=== PATIENT | female | born 1965 | race Caucasian/White ===

== ENCOUNTER 2017-03-17 18:10 | Emergency (ER) | payer BC ==
--- NOTE | 2017-03-17 18:49 | ED ---
General Adult HPI <David Mcginnis - Last Filed: 03/17/17 19:26> - General Source: patient, family, RN notes reviewed Mode of arrival: wheelchair Limitations: no limitations <Kevin Loyola - Last Filed: 03/17/17 19:50> - General Chief complaint: Head Injury Stated complaint: Fall-syncope Time Seen by Provider: 03/17/17 18:19 - History of Present Illness Initial comments: Patient's a 51-year-old female who presents emergency room today with chief complaint of a head injury that occurred just prior to arrival. Patient does admit that she was drinking earlier today. States he had 4 beers in the last 5 hours. States she felt fine. Family at bedside states that she went to stand up from a seated position and fell over hitting the back of her head. Patient states she does not feel dizzy or lightheaded prior to this. Patient states she does not believe she lost consciousness. She does admit that her vision is blurry at this time and does have a headache in the back of her head. She denies any other complaints or symptoms at this time. Patient denies any recent fever, chills, shortness of breath, chest pain, back pain, abdominal pain, nausea or vomiting, numbness or tingling, dysuria or hematuria, constipation or diarrhea, headaches or visual changes, or any other complaints. (Kevin Loyola) - Related Data Home Medications Medication Instructions Recorded Confirmed Ascorbic Acid [Vitamin C] 500 mg PO DAILY 03/17/17 03/17/17 Pediatric Multivitamin Comb#30 1 tab PO DAILY 03/17/17 03/17/17 [Multivitamin Children's Gummies] Thiamine HCl [Vitamin B-1] 100 mg PO DAILY 03/17/17 03/17/17 Allergies Allergy/AdvReac Type Severity Reaction Status Date / Time No Known Allergies Allergy Verified 03/17/17 19:14 Review of Systems ROS Other: All systems not noted in ROS Statement are negative. <David Mcginnis - Last Filed: 03/17/17 19:26> ROS Other: All systems not noted in ROS Statement are negative. <Kevin Loyola - Last Filed: 03/17/17 19:50> ROS Statement: Those systems with pertinent positive or pertinent negative responses have been documented in the HPI. Past Medical History Past Medical History: No Reported History History of Any Multi-Drug Resistant Organisms: None Reported Past Surgical History: Unable to Obtain Past Psychological History: No Psychological Hx Reported Smoking Status: Current every day smoker Past Alcohol Use History: Occasional Past Drug Use History: None Reported <Kevin Loyola - Last Filed: 03/17/17 19:50> General Exam <David Mcginnis - Last Filed: 03/17/17 19:26> Limitations: no limitations <Kevin Loyola - Last Filed: 03/17/17 19:50> - General Exam Comments Initial Comments: General: The patient is awake and alert, in no distress, and does not appear acutely ill. Eye: Pupils are equal, round and reactive to light, extra-ocular movements are intact. No nystagmus. There is normal conjunctiva bilaterally. No signs of icterus. Ears, nose, mouth and throat: There are moist mucous membranes and no oral lesions. Neck: The neck is supple, there is no tenderness or JVD. Cardiovascular: There is a regular rate and rhythm. No murmur, rub or gallop is appreciated. Respiratory: Lungs are clear to auscultation, respirations are non-labored, breath sounds are equal. No wheezes, stridor, rales, or rhonchi. Musculoskeletal: Normal ROM, no tenderness. Strength 5/5. Sensation intact. Pulses equal bilaterally 2+. Neurological: A&O x 3. CN II-XII intact, There are no obvious motor or sensory deficits. Coordination appears grossly intact. Speech is normal. Skin: Skin is warm and dry and no rashes or lesions are noted. Psychiatric: Cooperative, appropriate mood & affect, normal judgment. (Kevin Loyola) Medical Decision Making <David Mcginnis - Last Filed: 03/17/17 19:26> <Kevin Loyola - Last Filed: 03/17/17 19:50> - Medical Decision Making Patient reports she had approximately 4 beers earlier today. Stood up and fell backwards bumping her head. Came in with a headache. No nausea no vomiting no seizure activity per family. CAT scan of the brain negative. Patient states she still feels somewhat dizzy but she is able to stand she'll walk several feet turn around come back which couldn't do at home. Answer questions appropriately. Denies doing any drugs. Alert to person and place and purpose. The patient be given Tylenol for her discomfort ice pack to her head. Allowed to rest little longer for decision was made as to whether or not she'll be discharged home to care of her will awaken every 4 hours or more frequently as needed. Patient wants to go home at this time. Dr. Mcginnis (David Mcginnis) Reexamined at this time shows no signs of distress. She does admit that she is feeling better. She would like to be discharged home. We did discuss about hospitalization. She states she does not want stay in the hospital. She denies any drug use. Patient's declined drug screen. Denied any other testing at this time. States feels comfortable being discharged home. She'll be given information of concussion. Advised follow-up the family doctor in the next 1-2 days. Advised to return if any symptoms increase or worsen or for any other concerns. (Kevin Loyola) Disposition <David Mcginnis - Last Filed: 03/17/17 19:26> Time of Disposition: 19:49 <Kevin Loyola - Last Filed: 03/17/17 19:50> Clinical Impression: Concussion Disposition: HOME SELF-CARE Instructions: Concussion (ED) Additional Instructions: Please follow-up family doctor over the next 2 days. Please return to emergency room if any symptoms increase or worsen or for any other concerns. Please return to emergency room if the symptoms increase or worsen or for any other concerns. Referrals: Nonstaff,Physician [Primary Care Provider] - 1-2 days
--- NOTE | 2017-03-17 19:14 | CT ---
EXAMINATION TYPE: CT brain francis wo con DATE OF EXAM: 03/17/2017 7:00 PM COMPARISON: NONE HISTORY: Syncope today with injury to posterior head area. CT DLP: 1414.0 mGycm Automated exposure control for dose reduction was used. TECHNIQUE: CT scan of the head and cervical spine are performed without contrast. FINDINGS: There is no acute intracranial hemorrhage, mass effect, or midline shift identified. The ventricles and sulci are within normal limits in size. The globes are intact and the visualized sin uses are remarkable for inflammatory change in the ethmoid air cells. Cervical spine is visualized in its entirety from C1 through upper thoracic levels and demonstrates s atisfactory alignment without evidence of acute fracture or dislocation. Prevertebral soft tissue ap pears within normal limits. The C1-C2 articulation is unremarkable. IMPRESSION: 1. There is no acute fracture or dislocation evident in the cervical spine. 2. No acute intracranial hemorrhage, mass effect, or midline shift is seen.
[2017-03-17] MEDS ORDERED: ACETAMINOPHEN TAB 500 MG TAB PO STA (19:29)
[2017-03-17] MEDS: ONDANSETRON ODT 4 MG TAB PO STA ×2 (19:36→19:37)
[2017-03-17 20:15] VITALS: BP 126/78; PULSE 74; RESP 16; TEMP 98.4
== END 2017-03-17 20:15 | disposition home or self-care (01) ==
LOC: EC 18:10
DX: S06.0X0A Concussion without loss of consciousness, initial encounter (principal); F17.200 Nicotine dependence, unspecified, uncomplicated; Z79.899 Other long term (current) drug therapy; W18.00XA Striking against unspecified object with subsequent fall, initial encounter
CPT/HCPCS: 70450; 72125; 82075; 99284

== ENCOUNTER → 2021-10-12 | Outpatient (CLI) | payer MEDICARE, OTHER ==
--- NOTE | 2021-10-12 13:10 | P.GSHP ---
History of Present Illness H&P Date: 10/12/21 Chief Complaint: abnormal right breast ultrasound Janis is a 56-year-old white female seen in consultation for Dr. Mayberry regarding the radiographic abnormality in the right breast. [place] [address] after which additional views of the right breast and ultrasounds were performed. [place] [address] which revealed a persistent nodular density central portion of the right breast between the 12 and 12:30 position and ultrasound was recommended, this was done the same day and a precautionary 6 month follow-up ultrasound of the right breast was recommended. Repeat right breast mammogram was performed on 93 and ultrasound was again performed. On this evaluation a complex cyst versus mass at 3:00 right breast was identified and ultrasound core biopsy was recommended. The findings also stated that in the absence of histologic abnormality following the biopsy a short-term follow-up of the right breast 9 9:00 lesion which was 0.8 x 0.6 cm could be performed at 6 months. The patient does not feel any lumps masses or nodules of concern in either breast. She is not complaining of any nipple discharge. She's never had a breast biopsy in the past. She had genetic testing done and was reportedly negative. She does have a strong family history of breast cancer. Marivel Risk Evaluation: 5 year: 2.3% vs 1.4 lifetime risk: 14.5% vs 10% We have discussed antihormone therapy however at this time we are going to await biopsy results. caffeine: 2 cups/day Nicotine:1/2 PPD 30 years chocolate: weekly Family History: Maternal aunt: Breast cancer; bilateral mastectomy; ?age Maternal grandmother: Breast cancer Mother: Breast cancer in 20's maternal great grandmother: throat cancer Hormonal History: menarche: 12 , breast fed: yes, age at first : 18 menopause: LMP January 2021 BCP: as a teen 2 months; homones: none Surgical History: left ankle right knee Medical History: arthritis carpal tunnel back pain Social History: nicotine: 1/2 PPD alcohol: none drugs: none - Constitutional Constitutional: Reports sweats - EENT Eyes: denies blurred vision, denies pain Ears: bilateral: decreased hearing, tinnitus Ears, nose, mouth and throat: Denies headache, Denies sore throat - Breasts Breasts: bilateral: as per HPI - Cardiovascular Cardiovascular: Denies chest pain, Denies shortness of breath - Respiratory Respiratory: Denies cough, Denies 7 - Gastrointestinal Gastrointestinal: Denies abdominal pain, Denies diarrhea, Denies nausea, Denies vomiting - Genitourinary (Female) Genitourinary: Denies dysuria, Denies hematuria - Menstruation Menstruation: Reports as per HPI - Musculoskeletal Musculoskeletal: Reports as per HPI - Integumentary Integumentary: Denies pruritus, Denies rash - Neurological Neurological: Denies numbness, Denies weakness - Psychiatric Psychiatric: Denies anxiety, Denies depression - Endocrine Endocrine: Reports weight change, Denies fatigue - Hematologic/Lymphatic Comment: aspirin baby daily - Allergic/Immunologic Allergic/Immunologic: Reports as per HPI Past Medical History Past Medical History: No Reported History History of Any Multi-Drug Resistant Organisms: None Reported Past Surgical History: Orthopedic Surgery Additional Past Surgical History / Comment(s): right knee replacement-2018 Past Anesthesia/Blood Transfusion Reactions: No Reported Reaction Past Psychological History: No Psychological Hx Reported Smoking Status: Current every day smoker Past Alcohol Use History: Occasional Past Drug Use History: None Reported Medications and Allergies Home Medications Medication Instructions Recorded Confirmed Type Ascorbic Acid [Vitamin C] 500 mg PO DAILY 03/17/17 03/17/17 History Calcium Carbonate [Calcium] 600 mg PO DAILY 10/12/21 10/12/21 History Cyanocobalamin (Vitamin B-12) 5,000 mcg PO DAILY 10/12/21 10/12/21 History [Vitamin B12] Ergocalciferol [Vitamin D2 (1250 1,250 mcg PO DAILY 10/12/21 10/12/21 History Mcg = 29152 Iu)] Omeprazole 20 mg PO DAILY 10/12/21 10/12/21 History Phentermine HCl 37.5 mg PO DAILY 10/12/21 10/12/21 History Allergies Allergy/AdvReac Type Severity Reaction Status Date / Time No Known Allergies Allergy Verified 10/12/21 12:36 Surgical - Exam Vital Signs Temp Pulse Resp BP 98.4 F 80 16 145/90 10/12/21 12:41 10/12/21 12:41 10/12/21 12:41 10/12/21 12:41 BMI 28.2 - General no distress - Eyes normal ocular movement - ENT normal nares - Neck trachea midline - Respiratory normal respiratory effort - Cardiovascular Rhythm: regular Heart Sounds: normal: S1, S2 - Abdomen Abdomen: soft - Integumentary normal turgor - Neurologic no disoriented, no combative - Musculoskeletal normal gait - Psychiatric oriented to time, oriented to person, oriented to place, speech is normal, memory intact Breast Exam: BRA: 38D Inspection: bilateral grade 2 ptosis, right breast slightly smaller than left Inspection: right breast: Multi-positional exam fibrocystic changes no dominant masses or nodules of concern; particular attention to the 3:00 area did not reveal any specific lesions of concern Right axilla: No adenopathy of concern Left breast: Positional exam fibrocystic changes no dominant masses or nodules of concern Left axilla: No adenopathy of concern Results Mammogram and ultrasound reviewed in person with Dr. Brambila Assessment and Plan Assessment: Impression: 1. Strong family history of breast cancer 2. Mammographic/radiographic abnormality right breast at 3:00 3. Fibrocystic breast changes Plan: 1. Ultrasound-guided core biopsy/aspiration right breast 2. Follow-up after this CC: Dr. Mayberry
[2021-10-12 13:57] VITALS: BP 145/90; PULSE 80; RESP 16; TEMP 98.4
== END ==
LOC: WWCWWP 12:03
PROVIDERS: ATTEND Surgery
DX: N60.11 Diffuse cystic mastopathy of right breast (principal); N60.12 Diffuse cystic mastopathy of left breast; R92.8 Other abnormal and inconclusive findings on diagnostic imaging of breast; F17.210 Nicotine dependence, cigarettes, uncomplicated; M19.90 Unspecified osteoarthritis, unspecified site; Z80.3 Family history of malignant neoplasm of breast

== ENCOUNTER → 2021-11-02 | Day surgery (SDC) | payer OTHER ==
[2021-11-02 09:50] VITALS: RESP 16
[2021-11-02 11:01] VITALS: BP 129/87; PULSE 65; TEMP 97.9
--- NOTE | 2021-11-02 13:09 | USB ---
EXAMINATION TYPE: US biopsy breast VAD RT, MG diagnostic mammo RT wo CAD DATE OF EXAM: 11/02/2021 CLINICAL HISTORY: R92.8 ABN MAMMO. TECHNIQUE: Ultrasound guided core biopsy of right 3:00 breast. COMPARISON: NONE FINDINGS: The procedure of ultrasound guided core biopsy was explained to the patient. Benefits, alternatives, and risks were discussed. An informed consent was then obtained. The patient was placed in supine positioning for imaging and for the procedure. The overlying skin was prepped and draped in usual sterile fashion. Lidocaine buffered with bicarbonate was used as anesthetic into the skin and subcutaneous tissue up to area of concern in the right 3:00 breast. Under ultrasound guidance, a 12-gauge vacuum assisted biopsy gun device was used to obtain 1 core sample. The lesion could no longer be visualized. Following this, a biopsy clip was left in lesion. Postprocedural mammogram demonstrates appropriate clip deployment. The patient tolerated the procedure well without any immediate complication. The patient was kept in the radiology department for short stay after the procedure and then discharged home in stable condition. IMPRESSION: Successful, uncomplicated ultrasound guided core biopsy of area of concern in the right 3:00 breast, full pathology results to follow. Pathology Results: Benign RIGHT BREAST, THREE O'CLOCK POSITION, CORE BIOPSY: Fragment of benign fibrotic ductal cyst with acute and chronic inflammation. Recommendation Follow up mammogram and ultrasound of the right breast in 6 months. JARED
== END ==
LOC: RADUSWWP 09:36
PROVIDERS: ATTEND Surgery
DX: N60.01 Solitary cyst of right breast (principal); R92.8 Other abnormal and inconclusive findings on diagnostic imaging of breast
CPT/HCPCS: 88305; 77065; 19083; A4648; J2001

== ENCOUNTER → 2021-11-10 | Outpatient (CLI) | payer OTHER ==
[2021-11-10 12:15] VITALS: BP 150/81; PULSE 78; RESP 18; TEMP 98.7
--- NOTE | 2021-11-10 12:26 | P.PN ---
Subjective Progress Note Date: 11/10/21 Principal diagnosis: Fibrocystic breast changes Janis is a 56-year-old white female status post ultrasound-guided core biopsy of the right breast on . Pathology was benign. Patient tolerated the procedure without difficulty. Objective - Vital Signs Vital signs: Vital Signs Temp 98.7 F 11/10/21 12:13 Pulse 78 11/10/21 12:13 Resp 18 11/10/21 12:13 BP 150/81 11/10/21 12:13 Pulse Ox 97 11/10/21 12:13 Intake & Output 11/09/21 11/10/21 11/10/21 18:59 06:59 18:59 Weight 81.647 kg - Constitutional General appearance: Present: cooperative - EENT Eyes: Present: edentulous ENT: Present: hearing grossly normal - Neck Neck: Present: normal ROM - Respiratory Respiratory: bilateral: CTA - Cardiovascular Heart sounds: normal: S1, S2 - Integumentary Integumentary Comment(s): no evidence of infection at biopsy site - Psychiatric Psychiatric: Present: A&O x's 3, appropriate affect, intact judgment & insight Assessment and Plan Assessment: Impression: fibrocystic breast disease Plan: right breast mammogram in 6 months with appointment CC: Dr. Mayberry
== END ==
LOC: WWCWWP 11:14
PROVIDERS: ATTEND Surgery
DX: N60.11 Diffuse cystic mastopathy of right breast (principal); F17.200 Nicotine dependence, unspecified, uncomplicated

== ENCOUNTER → 2022-05-07 | Outpatient (CLI) | payer MEDICARE, OTHER ==
--- NOTE | 2022-05-07 15:13 | MM ---
Reason for Exam: Follow-up at short interval from prior study. Last screening mammogram was performed 9 month(s) ago. Patient History: Menarche at age 12. First Full-Term at age 18. Postmenopausal. Patient tested for BRCA1 outcome was negative. 11/02/2021, Benign Core Biopsy on the right side. Maternal aunt had breast cancer, age 50. Maternal aunt had breast cancer. Maternal grandmother had breast cancer. Mother had breast cancer, age 24. Risk Values: Marivel 5 year model risk: 2.7%. NCI Lifetime model risk: 16.8%. Prior Study Comparison: 11/30/2019 Bilateral MG screening mammo w CAD - 2, [facility]. 12/07/2020 Bilateral MG screening mammo w CAD - 2, [facility]. 02/08/2021 Right MG diagnostic mammo RT w CAD - 2, [facility]. 07/28/2021 Right MG 3D diag mammo w/cad RT - 2, [facility]. 11/02/2021 Right Diagnostic Mammogram, [facility]. Tissue Density: Right: The breast tissue is heterogeneously dense. This may lower the sensitivity of mammography. Findings: Analyzed By CAD. Clip marker noted from prior ultrasound-guided core biopsy. Chronic nodularity identified. No evidence for new mass or suspicious cluster of microcalcifications. Overall Assessment: Benign, BI-RAD 2 Management: Screening Mammogram of both breasts in 6 months. A clinical breast exam by your physician is recommended on an annual basis and results should be correlated with mammographic findings. This exam should not preclude additional follow-up of suspicious palpable abnormalities. Results were given to the patient verbally at the time of exam. Electronically signed and approved by: Miguel Mccoy M.D. Radiologis
== END | disposition home or self-care (01) ==
LOC: RADMAMWWP 14:20
PROVIDERS: ATTEND Surgery
DX: R92.8 Other abnormal and inconclusive findings on diagnostic imaging of breast (principal); Z78.0 Asymptomatic menopausal state; Z80.3 Family history of malignant neoplasm of breast
CPT/HCPCS: 77065

== ENCOUNTER → 2022-05-11 | Outpatient (CLI) | payer OTHER ==
[2022-05-11 11:46] VITALS: BP 148/95; PULSE 76; RESP 16; TEMP 98.1
--- NOTE | 2022-05-11 12:25 | P.PN ---
Subjective Progress Note Date: 05/11/22 Principal diagnosis: Fibrocystic breast changes Janis is a 56-year-old white female seen in consultation for Dr. Mayberry regarding the radiographic abnormality in the right breast. She underwent a bilateral mammogram on after which additional views of the right breast and ultrasounds were performed. A repeat right breast mammogram was performed on which revealed a persistent nodular density central portion of the right breast between the 12 and 12:30 position and ultrasound was recommended, this was done the same day and a precautionary 6 month follow-up ultrasound of the right breast was recommended. Repeat right breast mammogram was performed on 9320 and ultrasound was again performed. On this evaluation a complex cyst versus mass at 3:00 right breast was identified and ultrasound core biopsy was recommended. The findings also stated that in the absence of histologic abnormality following the biopsy a short-term follow-up of the right breast 9 9:00 lesion which was 0.8 x 0.6 cm could be performed at 6 months. The patient does not feel any lumps masses or nodules of concern in either breast. She is not complaining of any nipple discharge. She's never had a breast biopsy in the past. She had genetic testing done and was reportedly negative. She does have a strong family history of breast cancer. 05-11-22 She has no complaints related to her breast at this time. She is not complaining of any lumps masses or nodules in either breast. On 11-02-21 she underwent a core biopsy of the right breast which was benign. On 05-07-22 she had a right breast mammogram which was Benign BIRAD 2. She should have bilateral mammogram in 6 months back on schedule. Marivel Risk Evaluation: 5 year: 2.7% vs 1.4 lifetime risk: 16.8% vs 10% We have discussed antihormone therapy however at this time we are going to await biopsy results. caffeine: 2 cups/day Nicotine:1/2 PPD 30 years chocolate: weekly Family History: Maternal aunt: Breast cancer; bilateral mastectomy; ?age Maternal grandmother: Breast cancer Mother: Breast cancer in 20's maternal great grandmother: throat cancer Hormonal History: menarche: 12 , breast fed: yes, age at first : 18 menopause: LMP January 2021 BCP: as a teen 2 months; homones: none Surgical History: left ankle right knee Medical History: arthritis carpal tunnel back pain Social History: nicotine: 1/2 PPD alcohol: none drugs: none - Constitutional Constitutional: Reports sweats - EENT Eyes: denies blurred vision, denies pain Ears: bilateral: decreased hearing, tinnitus Ears, nose, mouth and throat: Denies headache, Denies sore throat - Breasts Breasts: bilateral: as per HPI - Cardiovascular Cardiovascular: Denies chest pain, Denies shortness of breath - Respiratory Respiratory: Denies cough, Denies 7 - Gastrointestinal Gastrointestinal: Denies abdominal pain, Denies diarrhea, Denies nausea, Denies vomiting - Genitourinary (Female) Genitourinary: Denies dysuria, Denies hematuria - Menstruation Menstruation: Reports as per HPI - Musculoskeletal Musculoskeletal: Reports as per HPI - Integumentary Integumentary: Denies pruritus, Denies rash - Neurological Neurological: Denies numbness, Denies weakness - Psychiatric Psychiatric: Denies anxiety, Denies depression - Endocrine Endocrine: Reports weight change, Denies fatigue - Hematologic/Lymphatic Comment: aspirin baby daily - Allergic/Immunologic Allergic/Immunologic: Reports as per HPI Objective - Vital Signs Vital signs: Vital Signs Temp 98.1 F 05/11/22 11:44 Pulse 76 05/11/22 11:44 Resp 16 05/11/22 11:44 BP 148/95 05/11/22 11:44 Pulse Ox 97 05/11/22 11:44 FiO2 Intake & Output 05/10/22 05/11/22 05/11/22 18:59 06:59 18:59 Weight 86.183 kg - Exam BMI: 28.1 - Constitutional General appearance: Present: cooperative - EENT Eyes: Present: EOMI ENT: Present: hearing grossly normal - Neck Neck: Present: normal ROM - Respiratory Respiratory: bilateral: CTA - Cardiovascular Heart sounds: normal: S1, S2 - Integumentary Integumentary: Present: normal turgor - Musculoskeletal Musculoskeletal: Present: gait normal - Psychiatric Psychiatric: Present: A&O x's 3, appropriate affect, intact judgment & insight - Additional findings Additional findings: Breast exam: BRA: 38D Inspection: grade 3 ptosis Inspection: Right Breast: Multi-positional exam fibrocystic changes no dominant masses or nodules of concern Right axilla: No adenopathy of concern Left breast: Multi-positional exam fibrocystic changes no dominant masses or nodules of concern Left axilla: No adenopathy of concern Assessment and Plan Assessment: Impression: Fibrocystic breast changes Plan: Bilateral mammogram in 6 months with a physician exam at that time We will confirm when her last bilateral mammogram was performed if it was over a year that we would do a left mammogram at this time as well CC: Dr. Mayberry
== END ==
LOC: WWCWWP 11:31
PROVIDERS: ATTEND Surgery
DX: N60.11 Diffuse cystic mastopathy of right breast (principal); N60.12 Diffuse cystic mastopathy of left breast; M19.90 Unspecified osteoarthritis, unspecified site; F17.210 Nicotine dependence, cigarettes, uncomplicated

== ENCOUNTER → 2022-05-30 | Outpatient (CLI) | payer MEDICARE, OTHER ==
--- NOTE | 2022-05-30 08:46 | MM ---
Reason for Exam: Follow-up at short interval from prior study. Last screening mammogram was performed 10 month(s) ago. Patient History: Menarche at age 12. First Full-Term at age 18. Postmenopausal. Patient tested for BRCA1 outcome was negative. 11/02/2021, Benign Core Biopsy on the right side. Maternal aunt had breast cancer, age 50. Maternal aunt had breast cancer. Maternal grandmother had breast cancer. Mother had breast cancer, age 24. Risk Values: Marivel 5 year model risk: 2.8%. NCI Lifetime model risk: 16.5%. Prior Study Comparison: 11/30/2019 Bilateral MG screening mammo w CAD - 2, [facility]. 12/07/2020 Bilateral MG screening mammo w CAD - 2, [facility]. 02/08/2021 Right MG diagnostic mammo RT w CAD - 2, [facility]. 07/28/2021 Right MG 3D diag mammo w/cad RT - 2, [facility]. 11/02/2021 Right Diagnostic Mammogram, [facility]. 05/07/2022 Right MG diagnostic mammo RT w CAD, [facility]. Tissue Density: Left: The breast tissue is heterogeneously dense. This may lower the sensitivity of mammography. Findings: Analyzed By CAD. There are several small well-circumscribed masses in the left breast redemonstrated particularly outer aspect. No suspicious new mass or worrisome cluster of microcalcification left breast. Overall Assessment: Benign, BI-RAD 2 Management: Screening Mammogram of both breasts in 1 year. A clinical breast exam by your physician is recommended on an annual basis and results should be correlated with mammographic findings. This exam should not preclude additional follow-up of suspicious palpable abnormalities. Results were given to the patient verbally at the time of exam. Electronically signed and approved by: Clement Flowers M.D.
== END | disposition home or self-care (01) ==
LOC: RADMAMWWP 08:18
PROVIDERS: ATTEND Surgery
DX: R92.8 Other abnormal and inconclusive findings on diagnostic imaging of breast (principal); Z78.0 Asymptomatic menopausal state; Z80.3 Family history of malignant neoplasm of breast
CPT/HCPCS: 77065; G0279; 77061

== ENCOUNTER → 2022-08-03 | Outpatient (CLI) | payer OTHER ==
[2022-08-03 13:00] VITALS: BP 159/80; PULSE 76; RESP 16; TEMP 98.5
--- NOTE | 2022-08-03 13:10 | P.PN ---
Progress Note - Text Progress Note Date: 08/03/22 Janis had a history of fibrocystic breast changes. HEr last right breast mammogram was on 05-07-22: BIRAD 2; and her left breast mammogram was on 05-30-22 BIRAD 2. Marivel /risk evaluation 5 year: 2.8%. We have discussed chemoprevention and at this time she would prefer close surveillance and has declined. CC: Dr. Mayberry
== END ==
LOC: WWCWWP 12:29
PROVIDERS: ATTEND Surgery
DX: N60.19 Diffuse cystic mastopathy of unspecified breast (principal); F17.200 Nicotine dependence, unspecified, uncomplicated

== ENCOUNTER 2022-12-11 10:51 | Emergency (ER) | payer MEDICARE, OTHER ==
[2022-12-11 11:00] VITALS: BP 158/94; PULSE 100; RESP 18; TEMP 98
[2022-12-11] MEDS ORDERED: IBUPROFEN 800 MG TAB PO STA (11:35)
--- NOTE | 2022-12-11 11:38 | XR ---
EXAMINATION TYPE: XR foot complete RT DATE OF EXAM: 12/11/2022 COMPARISON: NONE HISTORY: Pain TECHNIQUE: Three views are submitted. FINDINGS: There is a oblique mildly displaced fracture proximal phalanx fifth digit.. Severe hypertrophic arthr opathy of the first MTP. Calcaneal spurs noted. IMPRESSION: 1. There is a oblique mildly displaced fracture proximal phalanx fifth digit 2. Severe hypertrophic arthropathy first MTP
[2022-12-11] MEDS ORDERED: ACET/COD 300 MG/30 MG STARTER PACK 6 TAB BTL PO STA (11:40)
--- NOTE | 2022-12-11 11:43 | ED ---
General Adult HPI - General Chief complaint: Extremity Injury, Lower Stated complaint: right toe injury Time Seen by Provider: 12/11/22 11:09 Source: patient Mode of arrival: ambulatory Limitations: no limitations - History of Present Illness Initial comments: Patient is a 57-year-old female who presents to the emergency department for evaluation of right fifth toe pain. Patient stubbed her toe on a wall 2 days ago. She has not taken any pain medication other than her baby aspirin due to not having any at home. Pain not improving. No numbness or tingling. No issues with movement. - Related Data Home Medications Medication Instructions Recorded Confirmed Ascorbic Acid [Vitamin C] 500 mg PO DAILY 03/17/17 08/03/22 Calcium Carbonate [Calcium] 600 mg PO DAILY 10/12/21 08/03/22 Cyanocobalamin (Vitamin B-12) 5,000 mcg PO DAILY 10/12/21 08/03/22 [Vitamin B12] Ergocalciferol [Vitamin D2 (1250 1,250 mcg PO WEEKLY 10/12/21 08/03/22 Mcg = 33020 Iu)] Omeprazole 20 mg PO DAILY 10/12/21 08/03/22 Phentermine HCl 37.5 mg PO DAILY 10/12/21 08/03/22 Aspirin 81 mg PO DAILY 10/18/21 08/03/22 Fenofibrate Nanocrystallized 145 mg PO DAILY 08/03/22 08/03/22 [Fenofibrate] lisinopriL [Zestril] 10 mg PO DAILY 08/03/22 08/03/22 Previous Rx's Medication Instructions Recorded Ibuprofen [Motrin] 800 mg PO Q8HR PRN #30 tab 12/11/22 Allergies Allergy/AdvReac Type Severity Reaction Status Date / Time No Known Allergies Allergy Verified 12/11/22 11:00 Review of Systems ROS Statement: Those systems with pertinent positive or pertinent negative responses have been documented in the HPI. ROS Other: All systems not noted in ROS Statement are negative. Past Medical History Past Medical History: No Reported History, Hyperlipidemia, Hypertension History of Any Multi-Drug Resistant Organisms: None Reported Past Surgical History: Joint Replacement, Orthopedic Surgery Additional Past Surgical History / Comment(s): right knee, left ankle Past Anesthesia/Blood Transfusion Reactions: No Reported Reaction Past Psychological History: No Psychological Hx Reported Smoking Status: Current some day smoker Past Alcohol Use History: Rare Past Drug Use History: None Reported General Exam Limitations: no limitations General appearance: alert, in no apparent distress Head exam: Present: atraumatic, normocephalic, normal inspection Respiratory exam: Present: normal lung sounds bilaterally. Absent: respiratory distress, wheezes, rales, rhonchi, stridor Cardiovascular Exam: Present: regular rate, normal rhythm, normal heart sounds. Absent: systolic murmur, diastolic murmur, rubs, gallop, clicks Extremities exam: Present: other (Pain with palpation of right fifth toe without overlying erythema, bruising, or swelling. cap refill < 2 sec. Full range of motion) Course Vital Signs 12/11/22 10:58 Temperature 98 F Pulse Rate 100 Respiratory 18 Rate Blood Pressure 158/94 O2 Sat by Pulse 96 Oximetry Procedures - Orthopedic Splinting/Casting Injury #1 Side: right Lower Extremity Immobilizer: osman tape Medical Decision Making - Medical Decision Making Was pt. sent in by a medical professional or institution (, PA, VP [employer]ING [employer], urgent care, hospital, or usp...) When possible be specific @ -No Did you speak to anyone other than the patient for history (EMS, parent, family, police, friend...)? What history was obtained from this source @ -No Did you review nursing and triage notes (agree or disagree)? Why? @ -I reviewed and agree with nursing and triage notes Were old charts reviewed (outside hosp., previous admission, EMS record, old EKG, old radiological studies, urgent care reports/EKG's, usp records)? Report findings @ -No old charts were reviewed Differential Diagnosis (chest pain, altered mental status, abdominal pain women, abdominal pain men, vaginal bleeding, weakness, fever, dyspnea, syncope, headache, dizziness, GI bleed, back pain, seizure, CVA, palpatations, mental health)? @ -toe fracture, contusion, toe sprain EKG interpreted by me (3pts min.). @ -As above X-rays interpreted by me (1pt min.). @ -Yes, right foot x-ray shows an oblique fracture of the proximal phalanx fifth digit CT interpreted by me (1pt min.). @ -None done U/S interpreted by me (1pt. min.). @ -None done What testing was considered but not performed or refused? (CT, X-rays, U/S, labs)? Why? @ -None What meds were considered but not given or refused? Why? @ -None Did you discuss the management of the patient with other professionals (professionals i.e. , PA, VP EMERGING [employer]IA, lab, RT, psych nurse, social economist, overage shortage and damage clerk, teacher, patient safety officer, outpatient case manager)? Give summary @ -No Was smoking cessation discussed for >3mins.? @ -No Was critical care preformed (if so, how long)? @ -No Were there social determinants of health that impacted care today? How? (Homelessness, low income, unemployed, alcoholism, drug addiction, transportation, low edu. Level, literacy, decrease access to med. care, fdc, rehab)? @ -No Was there de-escalation of care discussed even if they declined (Discuss DNR or withdrawal of care, Hospice)? DNR status @ -No What co-morbidities impacted this encounter? (DM, HTN, Smoking, COPD, CAD, Cancer, CVA, ARF, Chemo, Hep., AIDS, mental health diagnosis, sleep apnea, morbid obesity)? @ -None Was patient admitted / discharged? Hospital course, mention meds given and route, prescriptions, significant lab abnormalities, going to OR and other pertinent info. @ -This is a 57-year-old presenting with right fifth toe pain. Oblique x-ray of the proximal phalanx fifth digit evident on x-ray. There is minimal displacement, no need for reduction. The toe was osman taped and placed in a postop shoe. Pain controlled. EDGARDO discussed in detail. Patient to follow-up with ortho Undiagnosed new problem with uncertain prognosis? @ -No Drug Therapy requiring intensive monitoring for toxicity (Heparin, Nitro, Insulin, Cardizem)? @ -No Were any procedures done? @ -yes, osman tapping Diagnosis/symptom? @ -right fifth toe fracture Acute, or Chronic, or Acute on Chronic? @ -acute Uncomplicated (without systemic symptoms) or Complicated (systemic symptoms)? @ -uncomplicated Side effects of treatment? @ -No Exacerbation, Progression, or Severe Exacerbation? @ -No Poses a threat to life or bodily function? How? (Chest pain, USA, [place], pneumonia, PE, COPD, DKA, ARF, appy, cholecystitis, CVA, Diverticulitis, Homicidal, Suicidal, threat to staff... and all critical care pts) @ -No Dr. Maria is my attending. Disposition Clinical Impression: Toe fracture, right Disposition: HOME SELF-CARE Condition: Good Instructions (If sedation given, give patient instructions): Toe Fracture (ED) Additional Instructions: Take medication as directed. Take Tylenol 3 for severe pain. Do not take Tylenol 3 and Tylenol together. Rest, ice, elevate injury. Keep taping and boot on until orthopedic evaluation. Follow-up with immigration specialist in 1- 2 days. Return to the emergency department experience new, concerning, or wors ening symptoms. Prescriptions: Ibuprofen [Motrin] 800 mg PO Q8HR PRN #30 tab PRN Reason: Pain Is patient prescribed a controlled substance at d/c from ED?: No Referrals: Bharti Mayberry MD [Primary Care Provider] - 1-2 days Kaden Robb MD [STAFF PHYSICIAN] - 1-2 days
== END 2022-12-11 11:59 | disposition home or self-care (01) ==
LOC: EC 10:51
DX: S92.911A Unspecified fracture of right toe(s), initial encounter for closed fracture (principal); I10 Essential (primary) hypertension; F17.200 Nicotine dependence, unspecified, uncomplicated; E78.5 Hyperlipidemia, unspecified; Z79.899 Other long term (current) drug therapy; X58.XXXA Exposure to other specified factors, initial encounter
CPT/HCPCS: 99283

== ENCOUNTER → 2023-02-14 | Outpatient (CLI) | payer MEDICARE ==
--- NOTE | 2023-02-14 15:05 | XR ---
EXAMINATION TYPE: XR cervical spine comp DATE OF EXAM: 02/14/2023 TECHNIQUE: Frontal, lateral, oblique, and open mouth view of the cervical spine are obtained. HISTORY: Fell and hit the back of head and neck COMPARISON: CT 03/17/2017 FINDINGS: The cervical spine is visualized in its entirety from C1 thru the top of T1 level, it is s atisfactory in alignment without evidence of acute fracture or dislocation. The pre-vertebral soft t issue appears within normal limits. The C1-C2 articulation is within normal limits on the open mouth view. The oblique images are within normal limits. IMPRESSION: No acute fracture or dislocation is seen in the cervical spine.
== END | disposition home or self-care (01) ==
LOC: RADXRMAIN 13:43
PROVIDERS: ATTEND Family Medicine
DX: S10.93XA Contusion of unspecified part of neck, initial encounter (principal)
CPT/HCPCS: 72050

== ENCOUNTER → 2023-06-03 | Outpatient (CLI) | payer OTHER ==
--- NOTE | 2023-06-03 13:22 | MM ---
Reason for Exam: Follow-up at short interval from prior study. Last mammogram was performed 1 year(s) and 10 month(s) ago. Patient History: Menarche at age 12. First Full-Term at age 18. Postmenopausal. Patient tested for BRCA1 outcome was negative. 11/02/2021, Benign Core Biopsy on the right side. Maternal aunt had breast cancer, age 50. Maternal aunt had breast cancer. Maternal grandmother had breast cancer. Mother had breast cancer, age 24. Risk Values: Marivel 5 year model risk: 2.9%. NCI Lifetime model risk: 16.1%. Tissue Density: The breast tissue is heterogeneously dense. This may lower the sensitivity of mammography. Findings: Analyzed By CAD. There is chronic nodularity seen bilaterally. Stable benign calcifications are present. Overall Assessment: Benign, BI-RAD 2 Management: Screening Mammogram of both breasts in 1 year. . Results were given to the patient verbally at the time of exam. Patient should continue monthly self-breast exams. A clinical breast exam by your physician is recommended on an annual basis. This exam should not preclude additional follow-up of suspicious palpable abnormalities. Note on Marivel scores and lifetime risk: 1. A Marivel score greater than 3% is considered moderate risk. If this is the case, consider specialist referral to assess eligibility for a risk reducing agent. 2. If overall lifetime risk for the development of breast cancer is 20% or higher, the patient may qualify for future screening with alternating mammogram and breast MRI. Electronically signed and approved by: Miguel Mccoy M.D. Radiologis
== END | disposition home or self-care (01) ==
LOC: RADMAMWWP 12:47
PROVIDERS: ATTEND Surgery
DX: R92.8 Other abnormal and inconclusive findings on diagnostic imaging of breast (principal); Z78.0 Asymptomatic menopausal state; Z80.3 Family history of malignant neoplasm of breast
CPT/HCPCS: 77066; G0279; 77062

== ENCOUNTER → 2023-09-05 | Outpatient (CLI) | payer OTHER ==
[2023-09-05 13:23] LABS: INR 0.9 (<1.2); Partial Thromboplastin Time 22.1 sec (22.0-30.0); Prothrombin Time 9.5 sec (9.0-12.0)
[2023-09-05 16:29] LABS: HCT 42.8 % (37.2-46.3); HGB 14.3 d/dL (12.0-15.0); MCH 31.2 pg (27.0-32.0); MCHC 33.4 d/dL (32.0-37.0); MCV 93.2 FL (80.0-97.0); Mean Platelet Volume 10.1 FL (9.5-12.2); NRBC Per 100 WBC 0 X 10*3/uL (0.00-0.01); Platelet Count 234 X 10*3/uL (140-440); RBC 4.59 X 10*6/uL (4.10-5.20); RDW 12.6 % (11.5-14.5); WBC 4.28 X 10*3/uL (4.50-10.00)
[2023-09-05 16:43] LABS: ALT 36 U/L (8-44); AST 27 U/L (13-35); Albumin 4.2 d/dL (3.8-4.9); Albumin/Globulin Ratio 1.68 Ratio (1.60-3.17); Alkaline Phosphatase 67 U/L (41-126); Blood Urea Nitrogen 10.8 mg/dL (9.0-27.0); Calcium 9.2 mg/dL (8.7-10.3); Carbon Dioxide 23.5 mmol/L (21.6-31.8); Chloride 108 mmol/L (96-109); Globulin 2.5 d/dL (1.6-3.3); Glucose 94 mg/dL (70-110); Potassium 4.2 mmol/L (3.5-5.5); Sodium 144 mmol/L (135-145); Total Bilirubin 0.2 mg/dL (0.3-1.2); Total Protein 6.7 d/dL (6.2-8.2)
[2023-09-05 19:38] LABS: Appearance,Urine Clear (Clear); Bilirubin,Urine Negative (Negative); Blood,Urine Negative (Negative); Color,Urine Yellow (Yellow); Ketones,Urine Negative (Negative); Nitrite,Urine Negative (Negative); PH, Urine 5.5; Specific Gravity,Urine 1.005 (1.001-1.030); Urobilinogen,Urine 0.2 E.U./DL
== END | disposition home or self-care (01) ==
LOC: LABPAT 11:05
PROVIDERS: ATTEND Orthopaedic Surgery
DX: Z01.812 Encounter for preprocedural laboratory examination (principal); M17.12 Unilateral primary osteoarthritis, left knee
CPT/HCPCS: 80053; 81003; 85027; 85610; 85730; 87070

== ENCOUNTER → 2023-10-29 | Outpatient (CLI) | payer MEDICARE, OTHER ==
--- NOTE | 2023-10-29 09:42 | CTL ---
EXAMINATION TYPE: CT Low Dose Lung DATE OF EXAM ORDERED: 10/29/2023 COMPARISON: No HISTORY: . Low Dose CT Lung Screening CT DLP: 74.[address] CTDI: 2.4 mGy IV CONTRAST USED: None. SCREENING VISIT: First visit COMPARISON: None. TECHNIQUE: Low dose computed tomography scan was performed through the chest at 1 millimeter thick se ctions and reconstructed images in the coronal plane at [address] DIAGNOSTIC QUALITY: Satisfactory FINDINGS: LUNG NODULES: Not presentLeft lung: no nodules identified.Right lung: no nodules identified. LUNGS: COPD: Severity: None Fibrosis: Severity:None Lymph nodes: None Other findings: None RIGHT PLEURAL SPACE: Effusion: None Calcification: None Thickening: None Pneumothorax: None LEFT PLEURAL SPACE: Effusion: None Calcification: None Thickening: None Pneumothorax: None HEART: Heart Size: Mildly enlarged Coronary calcification: Mild Pericardial effusion: None OTHER FINDINGS: Upper abdomen: No significant abnormality Bony thorax: Degenerative changes Supraclavicular region: No significant abnormalityOther: No significant abnormalityI IMPRESSION: No distinct pulmonary nodules seen. FOLLOW UP CT CHEST RECOMMENDATION: Follow-up screening in one year CT LUNG RAD: LUNG RAD CATEGORY 1 negative
== END | disposition home or self-care (01) ==
LOC: RADCTMAIN 09:06
PROVIDERS: ATTEND Family Medicine
DX: Z12.2 Encounter for screening for malignant neoplasm of respiratory organs (principal); Z87.891 Personal history of nicotine dependence
CPT/HCPCS: 71271

== ENCOUNTER 2024-03-05 20:54 | Emergency (ER) | payer MEDICARE, OTHER ==
--- NOTE | 2024-03-05 21:05 | ED ---
Chest Pain HPI - General Source: patient, family, RN notes reviewed Mode of arrival: ambulatory <Patsy Barrow - Last Filed: 03/05/24 21:04> <Eugenio Solis - Last Filed: 03/06/24 02:23> - General Chief Complaint: Chest Pain Stated Complaint: Dog bite, neck and body pain Time Seen by Provider: 03/05/24 21:05 - History of Present Illness Initial Comments: Quick note: 58-year-old female presented to the ER with a chief complaint of crushing chest pain. She states that started on 8:30 PM. She endorses nausea and shortness of breath. She also reports she was bit by a dog in her right forearm on Saturday. Denies any known cardiac history. (Patsy Barrow) 58-year-old female with an episode of chest pain. She describes this as a bandlike sensation. She describes it as a squeezing sensation. This occurred prior to arrival and has almost completely resolved by the time I evaluated the patient. She has no prior history of CAD. She is a former smoker. She did state that she was bit by a dog several days prior and was uncertain if this was related. She has had no fever. She has had bruising at the site of the bite without redness or warmth. (Eugenio Solis) - Related Data Home Medications Medication Instructions Recorded Confirmed Ascorbic Acid [Vitamin C] 500 mg PO DAILY 03/17/17 09/20/23 Cyanocobalamin (Vitamin B-12) 1,000 mcg PO DAILY 10/12/21 09/20/23 [Vitamin B12] Omeprazole 20 mg PO QAM 10/12/21 09/20/23 Aspirin 81 mg PO HS 09/20/23 09/20/23 Celecoxib [CeleBREX] 200 mg PO DAILY 09/20/23 09/20/23 Ergocalciferol [Vitamin D2 (1250 1,250 mcg PO WEEKLY 09/20/23 09/20/23 Mcg = 15971 Iu)] Furosemide [Lasix] 40 mg PO DAILY 09/20/23 09/20/23 Melatonin 5 mg PO HS 09/20/23 09/20/23 Valsartan 160 mg PO QAM 09/20/23 09/20/23 allopurinoL [Zyloprim] 100 mg PO DAILY 09/20/23 09/20/23 buPROPion HCL [Wellbutrin XL] 150 mg PO QAM 09/20/23 09/20/23 Previous Rx's Medication Instructions Recorded HYDROcodone/APAP 7.5-325MG [[place] 1 - 2 tab PO Q6HR PRN #32 tab 09/23/23 7.5-325] Ondansetron Odt [Zofran Odt] 4 mg PO Q8HR PRN #14 tab 09/23/23 Sennosides-Docusate Sodium 1 tab PO BID #60 tablet 09/23/23 [Senokot-S] Amoxic-Pot Clav 875-125Mg 1 tab PO Q12HR 10 Days #20 tab 03/06/24 [Augmentin 875-125] Allergies Allergy/AdvReac Type Severity Reaction Status Date / Time No Known Allergies Allergy Verified 09/20/23 14:50 Review of Systems ROS Other: All systems not noted in ROS Statement are negative. <Patsy Barrow - Last Filed: 03/05/24 21:04> ROS Other: All systems not noted in ROS Statement are negative. <Eugenio Solis - Last Filed: 03/06/24 02:23> ROS Statement: Those systems with pertinent positive or pertinent negative responses have been documented in the HPI. Past Medical History Past Medical History: No Reported History, Hyperlipidemia, Hypertension History of Any Multi-Drug Resistant Organisms: None Reported Past Surgical History: Joint Replacement, Orthopedic Surgery Additional Past Surgical History / Comment(s): right knee, left ankle Past Anesthesia/Blood Transfusion Reactions: No Reported Reaction Past Psychological History: No Psychological Hx Reported Smoking Status: Current some day smoker Past Alcohol Use History: Rare Past Drug Use History: None Reported <Patsy Barrow - Last Filed: 03/05/24 21:04> General Exam <Patsy Barrow - Last Filed: 03/05/24 21:04> General appearance: alert, in no apparent distress Head exam: Present: atraumatic, normocephalic Eye exam: Present: normal appearance, PERRL ENT exam: Present: normal exam Neck exam: Present: normal inspection. Absent: tenderness, meningismus Respiratory exam: Present: normal lung sounds bilaterally. Absent: respiratory distress, wheezes Cardiovascular Exam: Present: regular rate, normal rhythm GI/Abdominal exam: Present: soft. Absent: distended, tenderness, guarding Extremities exam: Present: other (Bite to the right forearm, ecchymosis and 4 small puncture wounds. These appear well-healed without purulence or signs of infection.) Neurological exam: Present: alert, oriented X3, CN II-XII intact. Absent: motor sensory deficit Psychiatric exam: Present: normal affect, normal mood Skin exam: Present: warm <Eugenio Solis - Last Filed: 03/06/24 02:23> - General Exam Comments Initial Comments: Visual Physical Exam Vital signs reviewed General: Well-appearing, nontoxic, no acute distress. Head: Normocephalic, atraumatic Eyes: PERRLA, EOMI ENT: Airway patent Chest: Nonlabored breathing Skin: No visual rash, normal skin tone, healing contusion to right forearm. For healing puncture wounds. Neuro: Alert and oriented 3 Musculoskeletal: No gross abnormalities (Patsy Barrow) Course Vital Signs 03/05/24 03/06/24 03/06/24 20:59 00:00 01:00 Temperature 97.9 F Pulse Rate 122 H 65 89 Respiratory 19 16 20 Rate Blood Pressure 139/78 115/77 116/74 O2 Sat by Pulse 95 93 L 94 L Oximetry Chest Pain MDM <Patsy Barrow - Last Filed: 03/05/24 21:04> <Eugenio Solis - Last Filed: 03/06/24 02:23> - MDM I performed the quick note portion of this chart. Electronically signed by Patsy Barrow PA-C (Patsy Barrow) Was pt. sent in by a medical professional or institution (ALLYSSA Morgan, ONCOLOGY COORDINATOR, urgent care, hospital, or [facility]...) When possible be specific @ -No Did you speak to anyone other than the patient for history (EMS, parent, family, police, friend...)? What history was obtained from this source @ -No Did you review nursing and triage notes (agree or disagree)? Why? @ -I reviewed and agree with nursing and triage notes Were old charts reviewed (outside hosp., previous admission, EMS record, old EKG, old radiological studies, urgent care reports/EKG's, [facility] records)? Report findings @ -No old charts were reviewed Differential Diagnosis @ -Differential Chest Pain: Stable Angina, Unstable Angina, STEMI, NSTEMI Aortic Dissection, Pneumothorax, Musculoskeletal, Esophageal Spasm GERD, Cholecystitis, Pancreatitis, Zoster, this is not meant to be an all-inclusive list. EKG interpreted by me (3pts min.). @Sinus tachycardia rate of 110, CO interval 144, QRS duration 100, QTc [address] segment elevation, artifact in V2. X-rays interpreted by me (1pt min.). @ -Chest x-ray negative for acute cardiopulmonary findings CT interpreted by me (1pt min.). @ -None done U/S interpreted by me (1pt. min.). @ -None done What testing was considered but not performed or refused? (CT, X-rays, U/S, labs)? Why? @ -None What meds were considered but not given or refused? Why? @ -None Did you discuss the management of the patient with other professionals (professionals i.e. , PA, ONCOLOGY COORDINATOR, lab, RT, psych nurse, social organization professor, cane weigher, teacher, staff mine warfare officer, director of casework department)? Give summary @ -No Was smoking cessation discussed for >3mins.? @ -No Was critical care preformed (if so, how long)? @ -No Were there social determinants of health that impacted care today? How? (Homelessness, low income, unemployed, alcoholism, drug addiction, transportation, low edu. Level, literacy, decrease access to med. care, assisted, rehab)? @ -No Was there de-escalation of care discussed even if they declined (Discuss DNR or withdrawal of care, Hospice)? DNR status @ -No What co-morbidities impacted this encounter? (DM, HTN, Smoking, COPD, CAD, Cancer, CVA, ARF, Chemo, Hep., AIDS, mental health diagnosis, sleep apnea, morbid obesity)? @ -None Was patient admitted / discharged? Hospital course, mention meds given and route, prescriptions, significant lab abnormalities, going to OR and other pertinent info. @ -58-year-old female who presents for evaluation of a dog bite to the right forearm and an episode of chest pain. Patient's pain was resolved at the time my evaluation. She describes it as a bandlike sensation, squeezing in nature. Patient had EKG showing sinus rhythm without ST segment elevation. Chest x-ray is clear. She has normal CBC, normal CMP, negative D-dimer, negative initial troponin. We did discuss the possibility of observation for this chest pain with cardiology consultation versus 3-hour repeat troponin. Patient prefers repeat troponin with outpatient follow-up. She continues to be asymptomatic while in the emergency department. Repeat troponin is negative. The patient is encouraged to return to the emergency department with any worsening or changing symptoms and to follow closely with her primary care provider. Regarding the dog bite I did initiate antibiotics in this patient and the patient states her tetanus is within the past 1 year. Undiagnosed new problem with uncertain prognosis? @ -No Drug Therapy requiring intensive monitoring for toxicity (Heparin, Nitro, Insulin, Cardizem)? @ -No Were any procedures done? @ -No Diagnosis/symptom? @ -Dog bite right forearm, chest pain Acute, or Chronic, or Acute on Chronic? @ -[Acute Uncomplicated (without systemic symptoms) or Complicated (systemic symptoms)? @ -Default Side effects of treatment? @ -No Exacerbation, Progression, or Severe Exacerbation? @ -No Poses a threat to life or bodily function? How? (Chest pain, [place], [place], pneumonia, PE, COPD, DKA, ARF, appy, cholecystitis, CVA, Diverticulitis, Homicidal, Suicidal, threat to staff... and all critical care pts) @ -Low risk at this time (Eugenio Solis) Disposition <Patsy Barrow - Last Filed: 03/05/24 21:04> Is patient prescribed a controlled substance at d/c from ED?: No Time of Disposition: 02:00 <Eugenio Solis - Last Filed: 03/06/24 02:23> Clinical Impression: Chest pain, Dog bite Disposition: HOME SELF-CARE Condition: Fair Instructions (If sedation given, give patient instructions): Chest Pain (ED), Animal Bite (ED) Prescriptions: Amoxic-Pot Clav 875-125Mg [Augmentin 875-125] 1 tab PO Q12HR 10 Days #20 tab Referrals: Bharti Mayberry MD [Primary Care Provider] - 1-2 days
[2024-03-05 21:14] VITALS: TEMP 97.9
[2024-03-05 21:48] LABS: Basophils # (A) 0.1 k/uL (0-0.2); Basophils % (A) 1 %; Eosinophils # (A) 0.2 k/uL (0-0.7); Eosinophils % (A) 3 %; HCT 40.4 % (34.0-46.0); Lymphocytes # (A) 2.9 k/uL (1.0-4.8); Lymphocytes % (A) 49 %; MCH 31.5 pg (25.0-35.0); MCHC 34.6 g/dL (31.0-37.0); MCV 91.1 fL (80.0-100.0); Mean Platelet Volume 8.1; Monocytes # (A) 0.3 k/uL (0-1.0); Monocytes % (A) 5 %; Neutrophils # (A) 2.4 k/uL (1.3-7.7); Neutrophils % (A) 40 %; Platelet Count 241 k/uL (150-450); RBC 4.44 m/uL (3.80-5.40); RDW 13.4 % (11.5-15.5)
[2024-03-05 22:03] LABS: INR 0.9 (<1.2); Partial Thromboplastin Time 23.3 sec (22.0-30.0); Prothrombin Time 10.2 sec (10.0-12.5)
[2024-03-05 22:06] LABS: ALT 36 U/L (4-34); AST 28 U/L (14-36); African American GFR (CKD) 85 (>60 ml/min/1.73 sqM); Albumin 4.4 g/dL (3.5-5.0); Alkaline Phosphatase 73 U/L (38-126); Anion Gap 13 mmol/L; Blood Urea Nitrogen 13 mg/dL (7-17); Calcium 8.9 mg/dL (8.4-10.2); Carbon Dioxide 20 mmol/L (22-30); Chloride 109 mmol/L (98-107); Glucose 109 mg/dL (74-99); Magnesium 2.2 mg/dL (1.6-2.3); Non-African American GFR(CKD) 74 (>60 ml/min/1.73 sqM); Potassium 3.7 mmol/L (3.5-5.1); Sodium 142 mmol/L (137-145); Total Bilirubin 0.3 mg/dL (0.2-1.3); Total Protein 7.1 g/dL (6.3-8.2)
--- NOTE | 2024-03-05 22:56 | XR ---
EXAMINATION TYPE: XR chest 2V DATE OF EXAM: 03/05/2024 9:32 PM CLINICAL INDICATION:Female, 58 years old with history of Chest Pain; [facility] COMPARISON: None TECHNIQUE: XR chest 2V. Frontal and lateral views of the chest.. FINDINGS: Lines/Tubes/Devices: No indwelling lines are seen. Heart/mediastinum: Heart size upper normal. Mediastinum appears normal. Pulmonary vascularity: Not increased, Lungs/Pleura: Hyperinflation with flattening of the diaphragm and mild interstitial changes. No evide nce of focal consolidation, sizeable pleural effusion, or pneumothorax. Musculoskeletal: No acute osseous abnormality demonstrated in the limits of the exam. Mild degenerati ve changes of the spine. Other findings: None. IMPRESSION: No acute cardiopulmonary abnormality.
[2024-03-06 02:41] VITALS: BP 135/94; PULSE 94; RESP 19
== END 2024-03-06 02:36 | disposition home or self-care (01) ==
LOC: EC 20:54
DX: S51.851A Open bite of right forearm, initial encounter (principal); S50.11XA Contusion of right forearm, initial encounter; R07.89 Other chest pain; F17.200 Nicotine dependence, unspecified, uncomplicated; W54.0XXA Bitten by dog, initial encounter
CPT/HCPCS: 36415; 71046; 80053; 83735; 84484; 85025; 85379; 85610; 85730; 93005; 99285

== ENCOUNTER → 2024-06-25 | Outpatient (CLI) | payer MEDICARE, OTHER ==
--- NOTE | 2024-07-21 11:45 | MM ---
Reason for Exam: Screening (asymptomatic). Last mammogram was performed 1 year(s) and 1 month(s) ago. Patient History: Menarche at age 12. First Full-Term at age 18. Postmenopausal. Patient tested for BRCA1 outcome was negative. 11/02/2021, Benign Core Biopsy on the right side. Maternal aunt had breast cancer, age 50. Maternal aunt had breast cancer. Maternal grandmother had breast cancer, age 50. Mother had breast cancer, age 24. Risk Values: Gomez 5 year model risk: 3.0%. NCI Lifetime model risk: 15.8%. Prior Study Comparison: 05/07/2022 Right MG diagnostic mammo RT w CAD, [facility]. 05/30/2022 Left MG 3D diag mammo w/cad LT, [facility]. 06/03/2023 Bilateral MG 3D diag mammo w/cad CHATO, [facility]. Tissue Density: The breasts are heterogeneously dense, which may obscure small masses. Findings: Analyzed By CAD. Chronic bilateral breast nodularity. Microclip right breast from prior biopsy. No significant change from prior exams. Overall Assessment: Benign, BI-RAD 2 Management: Screening Mammogram of both breasts in 1 year. 1. Screening Mammogram Bilateral in 1 Year . 2. Patient should continue monthly self-breast exams. A clinical breast exam by your physician is recommended on an annual basis. 3. This exam should not preclude additional follow-up of suspicious palpable abnormalities. NOTE ON GOMEZ SCORES AND LIFETIME RISK: 1. A Gomez score greater than 3% is considered moderate risk. If this is the case, consider specialist referral to assess eligibility for a risk reducing agent. 2. If overall lifetime risk for the development of breast cancer is 20% or higher, the patient may qualify for future screening with alternating mammogram and breast MRI. Electronically signed and approved by: Jimi Sen M.D. Radiologist
== END | disposition home or self-care (01) ==
LOC: RADMAMWWP 13:50
PROVIDERS: ATTEND Family Medicine
DX: Z12.31 Encounter for screening mammogram for malignant neoplasm of breast (principal); R92.333 Mammographic heterogeneous density, bilateral breasts; Z78.0 Asymptomatic menopausal state; Z80.3 Family history of malignant neoplasm of breast
CPT/HCPCS: 77063; 77067

== ENCOUNTER → 2024-06-29 | Outpatient (CLI) | payer MEDICARE, OTHER | END | disposition home or self-care (01) | LOC: LABWHC1 07:25 | PROVIDERS: ATTEND Family Medicine | DX: R73.9 Hyperglycemia, unspecified (principal); E78.2 Mixed hyperlipidemia | CPT/HCPCS: 36415; 80053; 80061; 83036; 84443; 85025 ==

== ENCOUNTER → 2024-12-10 | Outpatient (CLI) | payer MEDICARE, OTHER ==
--- NOTE | 2024-12-11 21:06 | CTL ---
EXAMINATION TYPE: CT Low Dose Lung DATE OF EXAM: 12/10/2024 10:15 AM COMPARISON: 10/29/2023 CLINICAL INDICATION: Female, 59 years old with history of Z87.891 personal hx tobacco use, personal t obacco use, Lung cancer screening, History of tobacco use. TECHNIQUE: Low dose computed tomography scan was performed through the chest at 1 mm thick sections a nd reconstructed images in the coronal plane at 1 mm thick sections. Contrast used: mL of , (none if empty) Oral contrast used: (none if empty) CT DLP: 87 mGycm, Automated exposure control for dose reduction was used. CT CTDI: 2.68 mGy, Automated exposure control for dose reduction was used. SCREENING VISIT: Subsequent CT DIAGNOSTIC QUALITY: Limited, but interpretable FINDINGS: LUNG NODULES: None. LUNGS: COPD: Severity: None Fibrosis: Severity: None Lymph nodes: There is a 1.3 cm lymph node in the pretracheal space. Additional shotty adenopathy is p resent. Other findings: None RIGHT PLEURAL SPACE: Effusion: None Calcification: None Thickening: None Pneumothorax: None LEFT PLEURAL SPACE: Effusion: None Calcification: None Thickening: None Pneumothorax: None HEART: Other: Ascending thoracic aorta at the level the main pulmonary artery measures 3.5 cm. The main pul monary artery at the bifurcation measures2.4 cm. Heart Size: Normal Coronary calcification: Pericardial effusion: None OTHER FINDINGS: Upper abdomen: Normal Bony thorax: Normal Supraclavicular region: Normal IMPRESSION: No suspicious abnormalities to suggest primary or metastatic neoplasm. FOLLOW UP CT CHEST RECOMMENDATION: Follow-up low-dose CT chest one year CT LUNG RAD: Lung-Rad 1 Negative [facility], , 12/11/2024 9:04 PM
== END | disposition home or self-care (01) ==
LOC: RADCTMAIN 09:56
PROVIDERS: ATTEND Family Medicine
DX: Z12.2 Encounter for screening for malignant neoplasm of respiratory organs (principal); Z87.891 Personal history of nicotine dependence
CPT/HCPCS: 71271

== ENCOUNTER → 2025-03-02 | Outpatient (CLI) | payer MEDICARE, OTHER ==
[2025-03-02 15:28] LABS: Basophils # (A) 0.05 X 10*3/uL (0.00-0.10); Basophils % (A) 1.4 %; Eosinophils # (A) 0.15 X 10*3/uL (0.04-0.35); Eosinophils % (A) 4.1 %; HCT 43.7 % (37.2-46.3); HGB 14.5 g/dL (12.0-15.0); Lymphocytes # (A) 1.48 X 10*3/uL (0.90-5.00); Lymphocytes % (A) 40.5 %; MCH 31.1 pg (27.0-32.0); MCHC 33.2 g/dL (32.0-37.0); MCV 93.8 FL (80.0-97.0); Mean Platelet Volume 10.1 FL (9.5-12.2); Monocytes # (A) 0.29 X 10*3/uL (0.20-1.00); Monocytes % (A) 7.9 %; NRBC Per 100 WBC 0 X 10*3/uL (0.00-0.01); Neutrophils # (A) 1.67 X 10*3/uL (1.80-7.70); Neutrophils % (A) 45.8 %; Platelet Count 231 X 10*3/uL (140-440); RBC 4.66 X 10*6/uL (4.10-5.20); RDW 12.3 % (11.5-14.5); WBC 3.65 X 10*3/uL (4.50-10.00)
[2025-03-02 15:38] LABS: ALT 33 U/L (8-44); AST 29 U/L (13-35); Albumin 4.6 g/dL (3.8-4.9); Alkaline Phosphatase 85 U/L (41-126); Blood Urea Nitrogen 20.2 mg/dL (9.0-27.0); Calcium 9.6 mg/dL (8.7-10.3); Chloride 105 mmol/L (96-109); Chol/HDL Ratio 4.79 Ratio; Globulin 2.7 g/dL (1.6-3.3); Glucose 97 mg/dL (70-110); LDL Cholesterol,Calculated 108.2 mg/dL (0.0-131.0); Potassium 4.5 mmol/L (3.5-5.5); Sodium 144 mmol/L (135-145); Total Bilirubin 0.4 mg/dL (0.3-1.2); Total Protein 7.3 g/dL (6.2-8.2)
== END | disposition home or self-care (01) ==
LOC: LABWHC1 10:48
PROVIDERS: ATTEND Family Medicine
DX: E78.2 Mixed hyperlipidemia (principal); H93.12 Tinnitus, left ear; N18.2 Chronic kidney disease, stage 2 (mild); R73.9 Hyperglycemia, unspecified; R63.2 Polyphagia
CPT/HCPCS: 36415; 80053; 80061; 83036; 84443; 85025